=== PATIENT | male | born 1955 | race Two or more races ===

== ENCOUNTER 2018-12-05 19:50 | Emergency (ER) | payer OTHER ==
[~2018-12-05] VITALS: Ht 165.1 cm; Wt 78.0 kg
[2018-12-05] MEDS ORDERED: TRADJENTA5 MG (20:04)
[2018-12-05] MEDS ORDERED: METFORMIN HCL1000 MG (20:04)
[2018-12-05] MEDS ORDERED: LISINOPRIL5 MG (20:05)
== END 2018-12-05 22:36 | disposition home or self-care (01) ==
LOC: ER 19:50
DX: K29.70 Gastritis, unspecified, without bleeding (principal)

== ENCOUNTER 2019-02-05 20:03 | Emergency (ER) | payer OTHER ==
[~2019-02-05] VITALS: Ht 165.1 cm; Wt 75.7 kg
[~2019-02-05 20:03] MED LIST: LISINOPRIL5 MG; METFORMIN HCL1000 MG; TRADJENTA5 MG
[2019-02-05] MEDS ORDERED: ZYRTEC10 M3 PO (22:19)
[2019-02-05] MEDS ORDERED: AMOX-CLAV 875-1 EACH PO (22:19)
[2019-02-05] MEDS ORDERED: INTESTINEX680 M1 PO (22:19)
== END 2019-02-05 22:33 | disposition home or self-care (01) ==
LOC: ER 20:03
DX: L03.311 Cellulitis of abdominal wall (principal); T63.444A Toxic effect of venom of bees, undetermined, initial encounter; L29.8 Other pruritus; Y92.89 Other specified places as the place of occurrence of the external cause

== ENCOUNTER 2023-01-07 08:59 | Emergency (ER) | payer OTHER ==
[~2023-01-07] VITALS: Ht 167.6 cm; Wt 74.8 kg
[~2023-01-07 08:59] MED LIST changes: +AMOX-CLAV 875-1 EACH PO; +INTESTINEX680 M1 PO; +ZYRTEC10 M3 PO
== END 2023-01-07 12:25 | disposition home or self-care (01) ==
LOC: ER 08:59
DX: S39.012A Strain of muscle, fascia and tendon of lower back, initial encounter (principal)
CPT/HCPCS: 96372; 99284; J1100; J1885

== ENCOUNTER 2023-01-08 10:42 | Outpatient (CLI) | payer OTHER | END 2023-01-08 10:49 | disposition home or self-care (01) | LOC: RAD 10:42 | PROVIDERS: ATTEND Internal Medicine Cardiovascular Disease | DX: M46.47 Discitis, unspecified, lumbosacral region (principal) ==

== ENCOUNTER 2023-02-11 09:24 | Emergency (ER) | payer OTHER ==
[~2023-02-11] VITALS: Ht 165.1 cm; Wt 74.8 kg
[2023-02-11] MEDS ORDERED: MUCINEX D ER 61 EACH PO (11:27)
== END 2023-02-11 11:33 | disposition home or self-care (01) ==
LOC: ER 09:24
PROVIDERS: General Practice
DX: B34.9 Viral infection, unspecified (principal); I10 Essential (primary) hypertension; Z20.822 Contact with and (suspected) exposure to COVID-19; E11.9 Type 2 diabetes mellitus without complications; Z79.84 Long term (current) use of oral hypoglycemic drugs

== ENCOUNTER 2023-09-10 08:38 | Emergency (ER) | payer OTHER ==
[~2023-09-10] VITALS: Ht 167.6 cm; Wt 74.8 kg
[~2023-09-10 08:38] MED LIST changes: +MUCINEX D ER 61 EACH PO
[2023-09-10] MEDS ORDERED: KETOROLAC TROMETHAMINE 60 MG VIAL IM ONE (09:30)
== END 2023-09-10 10:46 | disposition home or self-care (01) ==
LOC: ER 08:38
DX: M71.9 Bursopathy, unspecified (principal); I10 Essential (primary) hypertension; E11.9 Type 2 diabetes mellitus without complications; Z79.84 Long term (current) use of oral hypoglycemic drugs
CPT/HCPCS: 73020; 96372; 99283; J1885

== ENCOUNTER 2024-10-21 10:33 | Emergency (ER) | payer OTHER ==
[~2024-10-21] VITALS: Ht 165.1 cm; Wt 73.9 kg
[2024-10-21] MEDS ORDERED: LEVALBUTEROL HCL 1.25 MG/3 ML SOLUTION IH SCH (13:30)
[2024-10-21 13:38] LABS: BASO % 0.6 % (0.1-1.2); EOS % 2.2 % (0.7-7.0); LYMPH # 3.07 (1.18-3.74); LYMPH % 34.1 % (19.3-53.1); MEAN CORPUSCULAR HEMOGLOBIN 28.6 pg (25.6-32.2); MONO # 0.68 (0.24-0.82); MONO % 7.6 % (4.7-12.5); NEUT # 4.98 (1.56-6.13); NEUT % 55.4 % (34.0-71.1); PLATELET COUNT 296 K/uL (163-369); RED BLOOD COUNT 4.89 M/uL (4.63-6.08)
[2024-10-21 14:11] LABS: CALCIUM 8.6 mg/dL (8.5-10.1); CREATININE SERUM 0.93 mg/dL (0.70-1.30); GFR 81.04; POTASSIUM 4.98 mEq/L (3.5-5.1)
[2024-10-21 14:50] LABS: COVID-19 AG NEGATIVE (NEGATIVE)
[2024-10-21 14:51] LABS: INFLUENZA A AG NEGATIVE (NEGATIVE)
[2024-10-21] MEDS ORDERED: BUDESONIDE 0.5 MG/2 ML AMPUL.NEB IH STA (15:06)
[2024-10-21] MEDS ORDERED: METHYLPREDNISOLONE SOD SUCC 125 MG VIAL IV STA (15:06)
[2024-10-21] MEDS ORDERED: LEVALBUTEROL HCL 1.25 MG/3 ML SOLUTION IH ONE (15:45)
[2024-10-21] MEDS ORDERED: BUDESONIDE 0.5 MG/2 ML AMPUL.NEB IH ONE (15:45)
== END 2024-10-21 16:48 | disposition home or self-care (01) ==
LOC: ER 10:54
PROVIDERS: General Practice
DX: J44.1 Chronic obstructive pulmonary disease with (acute) exacerbation (principal); R05.9 Cough, unspecified; Z20.822 Contact with and (suspected) exposure to COVID-19; E11.9 Type 2 diabetes mellitus without complications; Z79.84 Long term (current) use of oral hypoglycemic drugs
CPT/HCPCS: 36415; 71046; 96365; 99283; J3490

== ENCOUNTER 2025-01-01 17:49 | Emergency (ER) | payer OTHER ==
[~2025-01-01] VITALS: Ht 165.1 cm; Wt 74.8 kg
[2025-01-01] MEDS ORDERED: CLONAZEPAM0.5 M1 (18:30)
[2025-01-01] MEDS ORDERED: DICLOFENAC SODI75 MG PO (19:28)
[2025-01-01] MEDS ORDERED: NORFLEX100MG PO (19:28)
[2025-01-01] MEDS ORDERED: ORPHENADRINE CITRATE 30 MG/ML AMPUL IM ONE (20:15)
[2025-01-01] MEDS ORDERED: DEXAMETHASONE SODIUM PHOSPHATE 4 MG/ML VIAL IM ONE (20:15)
[2025-01-01] MEDS ORDERED: KETOROLAC TROMETHAMINE 60 MG VIAL IM ONE ×2 (20:15→20:16)
[2025-01-01] MEDS ORDERED: DEXAMETHASONE SODIUM PHOSPHATE 4 MG/ML VIAL ONE (20:16)
[2025-01-01] MEDS ORDERED: ORPHENADRINE CITRATE 30 MG/ML AMPUL ONE (20:16)
== END 2025-01-01 20:28 | disposition home or self-care (01) ==
LOC: ER 17:49
DX: M54.2 Cervicalgia (principal); E11.9 Type 2 diabetes mellitus without complications; Z79.84 Long term (current) use of oral hypoglycemic drugs
CPT/HCPCS: 96372; 99282; J1100; J1885; J2360